=== PATIENT | male | born 1970 | race Caucasian/White ===

== ENCOUNTER 2023-03-05 09:30 | Day surgery (SDC) | payer SELFPAY, OTHER ==
[2023-03-05] VITALS (7 sets, daily range): BP systolic 121–145; BP diastolic 82–101; PULSE 65–87; RESP 16–18; TEMP 36.1–37; O2SAT 95–100; BMI 26.0
--- NOTE | 2023-03-05 09:55 | EKG12_ITS ---
Test Reason : PREOP Blood Pressure : / mmHG Vent. Rate : 058 BPM Atrial Rate : 058 BPM P-R Int : 164 ms QRS Dur : 082 ms QT Int : 412 ms P-R-T Axes : 270 -20 008 degrees QTc Int : 404 ms Unusual P axis, possible ectopic atrial bradycardia Abnormal ECG No previous ECGs available Confirmed by NIKOLAY VALENZUELA, CHHAYA ([id number]), editorial specialist MAY JEAN ([id number]) on 03/11/2023 11:16:36 AM Referred By: Dominik De Guzman Confirmed By:CHHAYA LINK MD
[2023-03-05] MEDS: Lactated Ringers 1,000 ML 15 ML IV ×2 (10:30→12:30)
--- NOTE | 2023-03-05 10:30 | RAD_ITS ---
INDICATION: left ankle distal fibula ORIF with syndesmotic repair EXAMINATION/TECHNIQUE: X-RAY - LEFT XR Ankle Min 3 Views COMPARISON: Ankle radiographs previous day FINDINGS: 4 fluoroscopic images of the ankle. 65.2 sec 1.70 mGy Left fibula plate and screw construct spans oblique distal fibular fracture. Syndesmotic tunnel and anchor of the distal tibia. RAD/Ankle min 3 Views IMPRESSION: Postprocedure change as above. Electronically Signed: Linwood Friedman MD at 3:06 EDT ,
--- NOTE | 2023-03-05 11:02 | PCM.HP.BLA ---
History and Physical Date of Admission: 03/05/23 [facility] [address] [place] [address] OFFICE VISIT Date of Service: 03/04/23 MR#: [id number] Acct: [id number] Name: KETTY KU Rep #: [id number] : 1970 Provider: Dr. Dominik De Guzman DO Age/Sex: 52/M Location: [facility] [place] Status: Signed Intake Vital Signs 02/29/2308:02 Height 5 ft 8 in Weight: 170 lb BMI 25.8 Intake Visit Reasons: LEFT FOOT Chief Complaint: Left foot Accompanied by: Is patient in pain?: No Allergies No Known Allergies Allergy (Unverified 02/28/23 08:03) Medications BFC compound PO 02/28/23 [History Confirmed 03/04/23] PFSH Social History Smoking Status: Never smoker alcohol intake: never HPI LEFT FOOT Details: Parts of this documentation were recorded by a scribe, this documentation accurately reflects the service provided and the decisions made by me, Dr. Dominik De Guzman DO 03/04/23 0968. KETTY KU is a 52 year old M here today for left ankle injury. DOI: 02/23/23 Patient was sliding into home plate at a family reunion and states somehow he rolled his ankle twisting it. He had immediate pain and swelling shortly thereafter. He states though that he did not think it was that bad and actually the next day went to [employer] in a normal shoe and was walking on it. He did see his chiropractor on Saturday where x-rays were taken and was referred here. He did take the xrays home last visit therefore we will order new xrays today. He has been NWB in a CAM boot. Denies any past injuries to this ankle. Ortho Exam General General: Yes no acute distress Neurologic: Yes alert and Yes oriented x3 Psychologic: Yes reasonable and appropriate Left Foot/Ankle Date of injury: 02/23/23 Skin: Yes CDI, Ecchymosis and Soft Tissue Swelling; No Erythema Exam: Yes Ecchymosis, Soft tissue swelling, tender to palpate - over fracture site and TTP Deltoid Ligament; No Erythema Anterior Drawer: 1 Tests: Squeeze Test: 2 Motor: Ankle Dorsiflextion: 4, Ankle Plantar Flexion: 4, Ankle Eversion: 4 and Ankle Inversion: 4 ANKLE: ecchymosis medial and lateral leg to the knee ecchymosis medial ankle at deltoid TTP over fx site intact sensation to light touch palpable pedal pulses. no open wounds. swelling is down + wrinkle sign. Positive squeeze test proximally causes pain along distal syndesmosis Head: Normocephalic Atraumatic Chest: symmetrical rise, non-labored breathing, no audible wheeze Abdomen: no guarding, non-rigid Supplemental Info 03/04/2023 x-ray left ankle there is a long oblique fracture displaced of the distal fibula Auguste C, appears to have a nondisplaced spiral extension distally Coding Level of Care Code Off vis,est,level 3 Diagnoses Fracture of distal fibula proximal to syndesmosis S82.839A Syndesmotic disruption of left ankle, subsequent encounter S93.432D Encounter type: subsequent encounter Laterality: left Assessment and Plan Assessment and Plan (1) Fracture of distal fibula proximal to syndesmosis: Status: Acute (2) Ankle syndesmosis disruption: Status: Acute Qualifiers: Encounter type: subsequent encounter Laterality: left Qualified Code(s): S93.432D - Sprain of tibiofibular ligament of left ankle, subsequent encounter Orders: Orders Ankle min 3 Views Today S82.839A - Other fracture of upper and lower end of unspecified fibula, initial encounter for closed fracture Plan Personally reviewed patients xrays of the left ankle. Patient educated that which is type of fx site/injury he had a syndesmotic injury which is a ligament injury. Educated that with the syndesmosis injury it is recommended that he has a distal fibula ORIF of the fx site with syndesmotic repair. Reviewed the pre-operative plans with the patient. Risks and benefits of the procedure were fully explained, including but not limited to infection, neurovascular injury, superficial peroneal nerve injury, continued pain, arthritis, stiffness, need for further surgery, re-injury, DVT, PE, general risks of anesthesia, and loss of limb or life. This is an elective surgery so he does not have to have surgery but there is risk of ankle instability and arthritic progression without surgery being increased. Patient is concerned about the cost of surgery. He will be NWB for up to but may be sooner than 3 months post op. Patient wishes to proceed with surgery and we will have patient financial services reach out to the patient as he is self pay. Follow up 2 weeks post op or sooner if pain, swelling, numbness or associated symptoms, or concerns develop. All questions answered. Patient in agreement of plan. 03/04/23 1155 <Electronically signed by Dominik De Guzman DO> Date Dominik De Guzman DO Cosigner Signature: Date (if applicable) CC: ~ I have examined the patient and the H&P has been reviewed. There are no clinical changes since date of exam.
[2023-03-05] MEDS: Cefazolin 2 GM in 0.9% Normal Saline 100 ML IV (11:09)
[2023-03-05] MEDS: Lidocaine 1%/Epi 1:100 (30ml) 30 ML VIAL (12:34)
--- NOTE | 2023-03-05 12:59 | OP.PCM_ITS ---
Operative Report Date of Procedure: 03/05/23 Preoperative diagnosis: Left distal fibula scott C displaced fracture, with corresponding syndesmotic injury Postoperative diagnosis: Same Procedure: ORIF right distal fibula with syndesmotic fixation Anesthesia: General EBL: 10 Complications: None Implants: [Arthrex distal fibular locking plate, and syndesmotic tight rope repair Condition: stable to PACU Indication for procedure: 52-year-old male patient who was playing softball and slid into base of rolling his left ankle and sustaining the aforementioned injury we did discuss thoroughly risk benefits and alternatives of surgery versus nonsurgical intervention including risk of bleeding infection nerve artery tissue damage need for further surgery, hardware prominence and continued pain and expected post operative course. Procedure: Patient was met the preoperative holding area once again the operative extremity was then identified by both patient and physician was marked. Patient was brought back to the operating room on a wheeled cart and transferred to the operative table supine position. Anesthesia was started well-padded tourniquet was placed on the operative upper thigh. The patient was prepped and draped in the usual sterile fashion and a timeout was called to ensure the proper patient procedure and extremity were being contemplated. An Esmarch was used to exsanguinate the extremity and the tourniquet was inflated to 300 mmHg. A 15 blade scalpel was used to make a lateral incision to the distal fibula. This was carried down through the skin and subcutaneous tissue electrocautery was used, avoiding superficial peroneal nerve. Full-thickness flaps were elevated to the bone fracture site was evaluated and was cleared of hematoma and debris with a curette and irrigation was used. A [id number] reduction clamp was used to reduce the fracture [while to interfragmentary compression lag screws were placed there was noted be a long oblique component of the fracture that was extended quite far proximally on the posterior side and there was a second extension of the fracture distally as a separate fragment. This was followed by a lateral locking plate and was checked under fluoroscopy for positioning of plate and fracture reduction the plate was secured to the shaft with a cortical screw distally followed by 2 locking screws distally followed by a cortical screw and a locking screw in the proximal end of the plate the most proximal screw was a cortical I had the choice of using a 2 hole longer plate which would require further dissection or using the locking screw in the second hole from the plate this is the route I chose. The distal smaller cortical screw after achieving the purpose of compressing the plate to the bone and securing with locking screws was stripped therefore it was removed and a larger cortical screw was placed in through the plate distal to the fracture . the medial syndesmotic joint space was symmetric with the remainder of the ankle mortise in both AP and mortise views fluoroscopic we then proceeded to place a K wire at the planned position of the syndesmotic fixation through the plate once we were satisfied with this position we overdrilled this with a cannulated drill bit and passed our tight rope tight rope was placed in the usual fashion and was flipped on the medial cortex and under counter tension the lateral button was slid to the plate and seated well compression of the syndesmosis was performed with hands tightening paddles and the tails were cut with a scalpel. The wound was thoroughly irrigated and was closed with 2-0 Vicryl followed by 3- 0 Vicryl subcutaneous tissue followed by enrrique followed by Xeroform 4 x 4 ABD web roll bulky Briceño dressing stirrup splint and posterior slab splint followed by an Shon wrap. Patient tolerated the procedure well and was transferred the PACU in stable condition. All counts were correct.
--- NOTE | 2023-03-05 13:07 | DCINST_ITS ---
Discharge Instructions Diet Discharge Diet: No restrictions Activity Weight Bearing Status: No weight bearing Keep extremity elevated above heart level: Operative Extremity Dressing / Incision Call your doctor if you observe: Shortness of breath and Chest pain Additional Dressing/Incision Instructions:: Keep splint and dressing clean and dry. Do not stick anything inside of the splint to itch. If itchy may take [id number] Benadryl. Strict elevation of the leg and foot above the heart while not ambulating 2 weeks, keep cool. No weightbearing on operative leg. May take pain medication as prescribed and supplement with OTC Tylenol 1000 mg every 6 hours and OTC ibuprofen 600 mg every 8 hours if needed. Minimize narcotic use as can be addictive and constipating. Use crutches while ambulating. Encourage wiggling the toes. Call with any questions or concerns Follow Up Care Please Follow Up With: Dominik De Guzman DO When: 2 weeks Test Results: Test results from this visit will be discussed in further detail at your follow- up appointment, if applicable. Discharge Plan Admission Primary Reason for Your Visit: Left ankle fracture surgery Attending Provider: Dominik De Guzman Primary Care Provider: Jose Pettit Discharge Orders/Prescriptions Prescriptions: New oxycodone 10 mg tablet 5 - 10 mg PO Q4H PRN (Reason: pain) 5 Days Qty: 30 0RF cephalexin [cephalexin] 500 mg capsule 1,000 mg PO Q8 Qty: 4 0RF Rx Instructions: take 2 tabs at 9:00 pm and 2 tabs after 5 am when you wake up No Action BFC compound 1 dose PO 4X/DAY Other Ambulatory Orders: 12 Lead EKG (Routine) Timeframe: [id number] Location: None Selected Ordered By: Dr. Jesus Jha Disposition Disposition (needs filled in before D/C Order can be placed): Home, Self Care
[2023-03-05] MEDS: Cefazolin 1 GM/50 ML BAG IV (14:24)
[2023-03-05] MEDS: Oxycodone/Apap 5/325 Tablet PO (14:24)
== END 2023-03-05 15:26 | disposition home or self-care (01) ==
LOC: SDC 09:33 → AC 09:36
PROVIDERS: PCP Family Medicine; Referring Provider Orthopaedic Surgery; Visit Provider Orthopaedic Surgery
PROC: (CPT 27829; principal; 2023-03-05 11:10)
DX: S82.832A Other fracture of upper and lower end of left fibula, initial encounter for closed fracture (principal); Y93.64 Activity, baseball
CPT/HCPCS: 27829; 64445; 73610; 76000; 93005; C1713; J7120; J2405